=== PATIENT | male | born 1970 | race Caucasian/White ===

== ENCOUNTER 2019-12-22 10:47 | Outpatient (CLI) | payer OTHER, SELFPAY ==
[2019-12-22 11:47] LABS: Alanine Aminotransferase 27 U/L (16-63); Albumin Level 3.7 g/dL (3.4-5.0); Alkaline Phosphatase 75 U/L (46-116); Anion Gap 3 mmol/L (8-16); Aspartate Amino Transferase 28 U/L (15-37); Bilirubin,Total 0.4 mg/dL (0.00-1.00); Blood Urea Nitrogen 12 mg/dL (7-18); Calcium 9.1 mg/dL (8.5-10.1); Carbon Dioxide 32 mmol/L (21-32); Chloride 102 mmol/L (98-108); Cholesterol 218 mg/dL (0-200); Estimated Glomerular Filt Rate > 60; Glucose 91 mg/dL (70-99); HDL Direct 59 mg/dL (40-60); LDL Cholesterol Calculated 142 mg/dL (<130); Osmolality Calculated 283 mOsm/kg (285-295); Potassium 5.3 mmol/L (3.5-5.1); Sodium 137 mmol/L (136-145); Triglycerides 86 mg/dL (0-150)
== END 2019-12-22 10:48 | disposition home or self-care (01) ==
PROVIDERS: PCP Family Medicine; Visit Provider Family Medicine
DX: E78.2 Mixed hyperlipidemia (principal); I10 Essential (primary) hypertension
CPT/HCPCS: 36415; 80053; 80061

== ENCOUNTER 2022-05-08 10:35 | Outpatient (CLI) | payer OTHER, SELFPAY ==
[2022-05-08 11:29] LABS: Alanine Aminotransferase 25 U/L (16-63); Albumin Level 3.9 g/dL (3.4-5.0); Alkaline Phosphatase 69 U/L (46-116); Anion Gap 8 mmol/L (8-16); Aspartate Amino Transferase 21 U/L (15-37); Bilirubin,Total 0.3 mg/dL (0.00-1.00); Blood Urea Nitrogen 12 mg/dL (7-18); Calcium 8.4 mg/dL (8.5-10.1); Carbon Dioxide 30 mmol/L (21-32); Chloride 101 mmol/L (98-108); Cholesterol 187 mg/dL (0-200); Estimated Glomerular Filt Rate > 60; Glucose 93 mg/dL (70-99); HDL Direct 47 mg/dL (40-60); LDL Cholesterol Calculated 91 mg/dL (<130); Osmolality Calculated 287 mOsm/kg (285-295); Potassium 4.5 mmol/L (3.5-5.1); Sodium 139 mmol/L (136-145); Total Protein 7.1 g/dL (6.4-8.2); Triglycerides 245 mg/dL (0-150)
== END 2022-05-08 10:36 | disposition home or self-care (01) ==
LOC: CHSLAB 10:38
PROVIDERS: PCP Family Medicine; Visit Provider Family Medicine
DX: E78.2 Mixed hyperlipidemia (principal); I10 Essential (primary) hypertension
CPT/HCPCS: 36415; 80053; 80061

== ENCOUNTER 2022-05-23 07:42 | Outpatient (CLI) | payer OTHER, SELFPAY ==
[2022-05-23 08:11] LABS: Basophils Absolute Auto 0.04 K/mm3 (0.00-0.10); Basophils Percent Auto 0.5 % (0.0-1.0); Eosinophils Absolute Auto 0.27 K/mm3 (0.02-0.50); Eosinophils Percent Auto 3.6 % (1.0-6.0); Hemoglobin 14.8 g/dL (14.0-18.0); Immature Granulocyte Absolute 0.02 K/mm3 (0.00-0.00); Immature Granulocyte Percent A 0.3 % (0.0-0.0); Lymphocytes Percent Auto 22.5 % (18.0-42.0); Mean Corpuscular HGB Conc 34.4 g/dL (32.0-36.0); Mean Corpuscular Volume 95.8 fL (78.0-102.0); Mean Platelet Volume 9.3 fl (8.7-11.0); Monocytes Absolute Auto 0.66 K/mm3 (0.10-0.90); Monocytes Percent Auto 8.7 % (2.0-11.0); Neutrophils Absolute Auto 4.9 K/mm3 (1.7-7.2); Neutrophils Percent Auto 64.4 % (50.0-70.0); Platelet Count Result 174 K/mm3 (150-420); Red Blood Count 4.49 M/mm3 (4.70-6.10); Red Cell Distribution Width 12.2 % (11.6-14.4); White Blood Count 7.6 K/mm3 (4.8-10.8)
[2022-05-23 09:10] LABS: Alanine Aminotransferase 28 U/L (16-63); Albumin Level 3.8 g/dL (3.4-5.0); Alkaline Phosphatase 68 U/L (46-116); Anion Gap 6 mmol/L (8-16); Aspartate Amino Transferase 17 U/L (15-37); Bilirubin,Total 0.5 mg/dL (0.00-1.00); Blood Urea Nitrogen 15 mg/dL (7-18); Calcium 8.6 mg/dL (8.5-10.1); Carbon Dioxide 31 mmol/L (21-32); Chloride 99 mmol/L (98-108); Cholesterol 195 mg/dL (0-200); Estimated Glomerular Filt Rate 59; Glucose 120 mg/dL (70-99); HDL Direct 56 mg/dL (40-60); LDL Cholesterol Calculated 105 mg/dL (<130); Osmolality Calculated 283 mOsm/kg (285-295); Potassium 4.6 mmol/L (3.5-5.1); Prostate Specific Antigen 1.3 ng/mL (< OR = 4.0); Sodium 136 mmol/L (136-145); Total Protein 6.7 g/dL (6.4-8.2); Triglycerides 168 mg/dL (0-150)
[2022-05-23 09:19] LABS: Thyroid Stimulating Hormone Reflex 1.03 u/IU/mL (0.36-3.74)
[2022-05-28 10:36] LABS: Testosterone Total 510 ng/dL (250-1100)
== END 2022-05-23 07:43 | disposition home or self-care (01) ==
LOC: CHSLAB 07:44
PROVIDERS: PCP Family Medicine; Visit Provider Nurse Practitioner
DX: N52.9 Male erectile dysfunction, unspecified (principal); Z12.5 Encounter for screening for malignant neoplasm of prostate; E78.2 Mixed hyperlipidemia
CPT/HCPCS: 36415; 80053; 80061; 84153; 84403; 84443; 85025; G0103

== ENCOUNTER 2022-07-13 12:38 | Outpatient (CLI) | payer OTHER, SELFPAY ==
--- NOTE | ~2022-07-13 | CT_ITS ---
Non-contrast CT scan of the Abdomen and Pelvis Clinical indication: Abdominal pain Technique: 2.5 mm axial scans were obtained through the abdomen and pelvis without intravenous or or al contrast. Dose reduction technique was used on this scan by utilizing automated exposure control a nd iterative reconstruction technique. The dose-length product (DLP) was 373.64 mGy-cm. COMPARISON: 12/26/2014 Findings: Images through the lung bases reveal no abnormalities. There is no evidence of renal or ureteral calculi. The kidneys and the ureters are nondilated. The liver, spleen, pancreas, gallbladder, and adrenals appear normal. There is no aortic aneurysm. T here are atherosclerotic calcifications of the aorta. There is no evidence of bowel obstruction. Normal appendix. Images through the pelvis were performed. There is no evidence of ascites or lymphadenopathy. Possibl e urinary bladder wall thickening versus underdistention. Prostate gland and seminal vesicles are unr emarkable. Impression: Possible cystitis versus underdistention of urinary bladder. No other significant findings. Reviewed, dictated and finalized at location . [facility] Impression: Possible cystitis versus underdistention of urinary bladder. No other significant findings.
== END 2022-07-13 12:39 | disposition home or self-care (01) ==
LOC: CHSIMG 12:40
PROVIDERS: PCP Family Medicine; Visit Provider Family Medicine
DX: K46.9 Unspecified abdominal hernia without obstruction or gangrene (principal)
CPT/HCPCS: 74176

== ENCOUNTER 2022-07-20 09:14 | Outpatient (CLI) | payer OTHER, SELFPAY ==
[2022-07-20 09:28] LABS: Appearance Urine Clear (Clear); Bilirubin Urine Negative (Negative); Blood Urine Negative (Negative); Color Urine Light Yellow (Yellow); Glucose Urine UA Negative (Negative); Ketones Urine Negative (Negative); Leukocyte Esterase Ur Negative (Negative); Nitrate Urine Negative (Negative); Protein Urine Negative (Negative); Urobilinogen Urine 0.2 mg/dL (0.2-1.0)
[2022-07-20 09:31] LABS: Add Urine Microscopic? NO
== END 2022-07-20 09:15 | disposition home or self-care (01) ==
LOC: CHSLAB 09:16
PROVIDERS: PCP Family Medicine; Visit Provider Family Medicine
DX: N30.90 Cystitis, unspecified without hematuria (principal); R82.90 Unspecified abnormal findings in urine
CPT/HCPCS: 81003; 87086

== ENCOUNTER 2022-11-06 07:13 | Outpatient (CLI) | payer OTHER, SELFPAY ==
--- NOTE | ~2022-11-06 | US_ITS ---
Abdominal Sonogram: Real-time sonographic imaging of the abdomen was performed. Clinical History: Abdominal pain Findings: The liver appears normal with no evidence of mass lesion or bile duct dilatation. Main por nilda vein demonstrates normal direction of flow. The spleen is normal in size without evidence of foca l lesion. The gallbladder is well distended, and appears normal with no evidence of gallstone or wal l thickening. The common bile duct measures 5 mm. The visualized pancreas and IVC are unremarkable. There is atherosclerotic change of the abdominal aorta. The right kidney measures 10.7 cm in length a nd the left kidney measures 9.8 cm. There is no hydronephrosis or renal calculus. Impression: No significant abnormality seen. Reviewed, dictated and finalized at location . Impression: No significant abnormality seen.
== END 2022-11-06 07:14 | disposition home or self-care (01) ==
LOC: CHSIMG 07:15
PROVIDERS: PCP Family Medicine; Visit Provider Family Medicine
DX: R10.9 Unspecified abdominal pain (principal)
CPT/HCPCS: 76700

== ENCOUNTER 2022-11-22 08:39 | Outpatient (CLI) | payer OTHER, SELFPAY ==
[2022-11-22 09:43] LABS: Alanine Aminotransferase 21 U/L (16-63); Aspartate Amino Transferase 16 U/L (15-37); Cholesterol 241 mg/dL (0-200); HDL Direct 55 mg/dL (40-60); LDL Cholesterol Calculated 168 mg/dL (<130); Triglycerides 89 mg/dL (0-150)
== END 2022-11-22 08:40 | disposition home or self-care (01) ==
LOC: CHSLAB 08:45
PROVIDERS: PCP Family Medicine
DX: E78.5 Hyperlipidemia, unspecified (principal)
CPT/HCPCS: 36415; 80061; 84450; 84460

== ENCOUNTER 2022-12-18 14:27 | Outpatient (CLI) | payer OTHER, SELFPAY ==
--- NOTE | ~2022-12-18 | XR_ITS ---
EXAM: XR hip BI 2V w AP pelvis DATE: 12/18/2022 14:57 HISTORY: M25.551 - Pain in lateral right hip x2 days, travels anterio . COMPARISON: None available. FINDINGS: Normal mineralization. No fracture or dislocation. No lytic or blastic lesion. Mild degene rative change in the right SI joint. Moderate degenerative change in the pubic symphysis and bilatera l hips, worse on the right. Surgical clips over the medial thigh. Scattered vascular calcifications. No erosion or periosteal change. IMPRESSION: Moderate bilateral hip osteoarthritis, worse on the right. Reviewed, dictated and finalized at location K.
[2022-12-18 15:19] LABS: Troponin I 14.8 ng/L (0.00-60.4)
== END 2022-12-18 14:28 | disposition home or self-care (01) ==
LOC: CHSLAB 14:29
PROVIDERS: PCP Nurse Practitioner Family; Visit Provider Nurse Practitioner Family
DX: M16.0 Bilateral primary osteoarthritis of hip (principal); R07.9 Chest pain, unspecified; M25.551 Pain in right hip
CPT/HCPCS: 36415; 73521; 84484

== ENCOUNTER 2023-03-08 08:06 | Outpatient (CLI) | payer OTHER, SELFPAY ==
--- NOTE | 2023-03-08 08:08 | ECG_ITS ---
Measurements Intervals [place] Rate: 53 P: 57 VT: 161 QRS: 54 QRSD: 99 T: 162 QT: 429 QTc: 406 Interpretive Statements SINUS BRADYCARDIA LEFT VENTRICULAR HYPERTROPHY WITH SECONDARY REPOLARIZATION ABNORMALITIES ABNORMAL ECG NO PREVIOUS ECG AVAILABLE FOR COMPARISON Electronically Signed On 03-08-2023 15:16:53 CDT by Vinnie Camacho M.D.
== END 2023-03-08 08:07 | disposition home or self-care (01) ==
PROVIDERS: PCP Family Medicine; Visit Provider Anesthesiology
DX: Z01.818 Encounter for other preprocedural examination (principal); I10 Essential (primary) hypertension; R00.1 Bradycardia, unspecified; R94.31 Abnormal electrocardiogram [ECG] [EKG]
CPT/HCPCS: 93005

== ENCOUNTER 2023-03-13 01:23 | Day surgery (SDC) | payer OTHER, SELFPAY ==
[2023-03-06 13:02] VITALS: BMI 25.9
--- NOTE | 2023-03-06 13:12 | PC.NURSE ---
Report to the Outpatient Waiting Room, entrance under the green pavilion located off [facility], at time 0600 on date 03/13/23. Planned Procedure Time: 0730. Time changes happen often and if your time is changed the preop area will call you the afternoon before. - You and your visitor will be asked to self-screen and do not enter if you have any COVID symptoms. - A mask is optional within the hospital at this time. Patients may have clear liquids (water, carbonated beverages, clear teas, apple juice) until 3 hours prior to surgery with a maximum of 20 ounces. - No food from midnight until time of surgery Take the following medications with a SIP of water the morning of surgery: CARVEDILOL, TYLENOL IF NEEDED DO NOT STOP ANY OF YOUR OTHER PRESCRIPTION MEDICATIONS PRIOR TO SURGERY ?EXCEPT THE FOLLOWING Medications to discontinue per physician: N/A Date to take last dose: N/A Please no make-up, nail togolese, hairspray, perfume, deodorant, or body powder the day of surgery. No jewelry (including any body piercings) or valuables the day of surgery, leave them at home. Please take a shower or bath the night before, or the morning of, surgery with an antibacterial soap. Wear comfortable, loose fitting clothing. - Jewelry must be removed prior to entering the operating room. Rings and piercings that are not removed may be cut off. - The hospital will not accept responsibility for valuables. - Please leave all valuables, including medications, at home the day of surgery. If you are going home after surgery, a licensed hazmat tanker driver must drive you home. - NO public transportation without another adult if you receive anesthesia. - We recommend that an adult stay with you for 24 hours following discharge. - We also recommend that you do not drive, make important decision, drink alcoholic beverages, or take any drugs that were not prescribed by your health care provider for at least 24 hours after your discharge time. Follow any additional instructions given to you from your surgeon. If you or anyone in your household have experienced Covid symptoms in the past week, please notify your surgeon or the nurse liaison at the phone number below for possible testing. Telephone instructions given to PT - JEAN PAUL REYEZ and asked if any additional questions and then verbalized understanding. Patient advised to call surgeon office or pre surgery nurse liaison [phone] if any additional questions.
[2023-03-13] VITALS (9 sets, daily range): BP systolic 118–151; BP diastolic 63–105; PULSE 46–88; RESP 14–20; TEMP 36.4–36.8; O2SAT 100
[2023-03-13] MEDS: LACTATED RINGERS 1,000 ML 30 ML IV CONT ×2 (07:00→09:53)
[2023-03-13] MEDS: ACETAMINOPHEN 500 MG TABLET 1000 MG PO (07:00)
[2023-03-13] MEDS: KETOROLAC 15 MG/ML VIAL (*BKC) IV PUSH (07:00)
--- NOTE | 2023-03-13 07:13 | PM.IMHP ---
H&P: HPI History of Present Illness Date/Time: 03/13/23 07:13 Chief Complaint: right inguinal hernia Narrative: 52 yo man presents for right inguinal hernia repair. He reports no changes since last seen in office. Review of Systems Review of Systems: All systems reviewed & are unremarkable except as noted in HPI and below Constitutional: Constitutional: Denies chills, Denies fever(s), Denies headache(s) and Denies weight loss Eyes: Eyes: Denies change in vision ENT: Denies dizziness, Denies headache(s), Denies neck mass and Denies throat swelling Cardiovascular: Cardiovascular: Denies chest pain, Denies lightheadedness and Denies dyspnea Respiratory: Respiratory: Denies cough, Denies dyspnea and Denies wheezing Gastrointestinal: Gastrointestinal: Denies abdominal pain, Denies change in bowel habits, Denies nausea and Denies vomiting Genitourinary: Genitourinary: Denies hematuria and Denies dysuria Musculoskeletal: Musculoskeletal: Reports as per HPI Integumentary/Breasts: Skin/Breast: Reports as per HPI Neurologic: Denies dizziness and Denies headache(s) Allergic/Immunologic: Allergic/Immunologic: Denies throat swelling and Denies wheezing PMFSH Past Medical History Medical History Bipolar disorder Cardiac defibrillator in place CHF (congestive heart failure) Hyperlipidemia Hypertension Surgical History Surgical History Hx of CABG Hx of cardiac cath Social History Social History Social History: on disability Smoking packs per day: 1 Smoking cigarettes per day: 20.0 Years smoked: 40 Smoking pack-years: 40.00 Smoking status: Current every day smoker Tobacco type: cigarettes Alcohol intake: former Drinks per week: 12 Substance use: current Substance use type: marijuana Living arrangements: with family Spiritual care concerns: No Meds Home Medications and Allergies Home Medications Medication Instructions Recorded Confirmed Type albuterol sulfate 90 mcg/actuation 2 puff inhalation Q4H PRN 06/12/22 03/06/23 History aerosol inhaler Bronchospasm aspirin 81 mg tablet,delayed 81 mg PO DAILY 06/12/22 03/06/23 History release (Adult Low Dose Aspirin) carvedilol 12.5 mg tablet (Coreg) 12.5 mg PO Q12H 06/12/22 03/06/23 History famotidine 20 mg tablet 20 mg PO BID 06/12/22 03/06/23 History lisinopril 10 mg tablet 10 mg PO DAILY #90 tabs 01/23/23 03/06/23 Rx acetaminophen 650 mg 650 mg PO Q12H PRN Pain 03/06/23 03/06/23 History tablet,extended release ezetimibe 10 mg tablet 10 mg PO HS 03/06/23 03/06/23 History Allergies Allergy/AdvReac Type Severity Reaction Status Date / Time atorvastatin AdvReac Cramping Verified 03/06/23 12:59 of the Muscles Exam Const: General: no acute distress and alert Orientation/consciousness: patient oriented x3 HENMT: Head: normocephalic and atraumatic Ears: hearing grossly normal bilaterally Face/Nose/Sinus: Normal nares present Mouth: Yes Normal oral and palatal mucosa present Eyes: Periorbital: periorbital findings normal Sclera: sclerae normal EOM: EOMs intact bilaterally Neck: Neck: normal visual inspection, no lymphadenopathy and trachea midline Chest: Chest palpation & inspection: normal inspection of the chest Resp: Effort & Inspection: normal respiratory effort Auscultation: clear to auscultation bilaterally Cardio: Jugular venous distension: no JVD Rate: regular rate Rhythm: regular rhythm Heart sounds: S1 normal heart sound present and S2 normal heart sound present Peripheral pulses: Peripheral pulses 2+ throughout GI: Inspection: normal to inspection GI Palp: Yes Soft to palpation, No Tenderness to palpation present (GI), No Guarding due to palpation present (GI) and No Rebound tenderness present Percussion: Yes normal to percussi
--- NOTE | 2023-03-13 07:15 | WPDHPUPDATE1 ---
History and Physical Update Update Date/Time: 03/13/23 07:15 History and Physical has been reviewed, including an updated exam of the patient. There are NO changes in the patient's condition. Risks, benefits, and alternatives have been discussed and questions answered. Patient agrees to proceed with procedure.
--- NOTE | 2023-03-13 07:29 | WPDANESEPPF ---
Anes - Initial Pre Proc Eval Procedure: Operation Date: 03/13/23 07:30 Proposed Procedures p Laparoscopic Right Inguinal Hernia Repair with Mesh, DaVinci Assisted - Jorge Ingram DO Date/Time: 03/13/23 07:29 Surgeon: Jorge Ingram DO Pre Op Diagnosis: Rt Ing Hernia Patient Data Age: 52 Gender: M Height: 1.78 m Weight: 82 kg Allergies Allergy/AdvReac Type Severity Reaction Status Date / Time atorvastatin AdvReac Cramping Verified 03/06/23 12:59 of the Muscles Home Medications Medication Instructions Recorded Confirmed Type albuterol sulfate 90 mcg/actuation 2 puff inhalation Q4H PRN 06/12/22 03/06/23 History aerosol inhaler Bronchospasm aspirin 81 mg tablet,delayed 81 mg PO DAILY 06/12/22 03/06/23 History release (Adult Low Dose Aspirin) carvedilol 12.5 mg tablet (Coreg) 12.5 mg PO Q12H 06/12/22 03/06/23 History famotidine 20 mg tablet 20 mg PO BID 06/12/22 03/06/23 History lisinopril 10 mg tablet 10 mg PO DAILY #90 tabs 01/23/23 03/06/23 Rx acetaminophen 650 mg 650 mg PO Q12H PRN Pain 03/06/23 03/06/23 History tablet,extended release ezetimibe 10 mg tablet 10 mg PO HS 03/06/23 03/06/23 History Laboratory Tests 03/13/23 06:52 Blood Type Pending Antibody Screen Pending Patient hx anesthesia problems: none Family hx anesthesia problems: none Results Review: All pre-operative results and documents have been reviewed as part of the pre-operative evaluation. [facility] Past Medical History Medical History Bipolar disorder Cardiac defibrillator in place CHF (congestive heart failure) Hyperlipidemia Hypertension Surgical History Surgical History Hx of CABG Hx of cardiac cath Social History Social History Social History: on disability Smoking packs per day: 1 Smoking cigarettes per day: 20.0 Years smoked: 40 Smoking pack-years: 40.00 Smoking status: Current every day smoker Tobacco type: cigarettes Alcohol intake: former Drinks per week: 12 Substance use: current Substance use type: marijuana Living arrangements: with family Spiritual care concerns: No Anes - Eval Final PreProcedure Day of Procedure 03/13/23 07:29 Patient weight: normal Heart: regular rate and rhythm Lungs: decreased breath sounds Airway: Mallampati scale class II Neurological: alert and oriented Last oral intake: >/= 8 hours ASA classification: IV Emergent: no Anesthetic plan: proceed Anesthesia type and monitoring: general ETT and standard monitoring Results Review: All pre-operative results and documents have been reviewed as part of the pre-operative evaluation. Informed Consent: The patient's anesthetic plan and its attendant risks and benefits were discussed with the patient/family/POA. Questions were solicited and answers provided to the satisfaction of the patient/family/POA.
[2023-03-13] MEDS: ceFAZolin 2 GM/D5W 50 ML 2 GM/50 ML BAG IVPB (07:36)
[2023-03-13] MEDS: BUPIVACAINE/EPINEPHRINE 0.5% 50 ML VIAL 30 ML INFILTRATE (08:23)
--- NOTE | 2023-03-13 08:36 | W.PM.PROC2 ---
Procedure Note - Detailed Date of Procedure 03/13/23 Pre-op Diagnosis Rt Ing Hernia Post-op Diagnosis Same (Direct [facility]) Procedure Performed Laparoscopic right inguinal hernia repair with mesh, da Enrique assisted Surgeon Jorge Ingram, Anesthesia General and Local (0.5% bupivacaine with epinephrine) Indications This is a 52-year-old man who presented with a right groin bulge and pain for the past year. It started out small with minimal symptoms but has become more symptomatic since then. He was found to have a reducible right inguinal hernia on physical exam. Imaging was essentially normal. Discussions were made with the patient about treatment options and decision was made to proceed with robotic assisted laparoscopic right inguinal hernia repair with mesh. Findings Laparoscopic right inguinal hernia repair was performed. The patient was found have a small direct right inguinal hernia. There was no evidence of a left inguinal hernia. A robotic transabdominal preperitoneal approach was utilized for repair. Once a wide enough preperitoneal pocket was created, I then placed a large right 3DMax mid mesh overlying the entire right myopectineal orifice. Description of Procedure Procedure as well as risks, benefits, and alternatives were discussed with the patient. Written consent was obtained and placed in chart prior to procedure. Patient was brought back to surgical suite. He was placed supine on operating table. Time-out was done to confirm patient and procedure. He was then intubated by Anesthesia Department. His abdomen was prepped and draped in sterile fashion using chlorhexidine prep. 0.5% bupivacaine with epinephrine was infiltrated at each location for incision. An 8 mm incision was made in the left lateral abdomen, and a 5 mm Optiview trocar was advanced through the abdominal layers under direct visualization. Once inside the abdominal cavity, carbon dioxide insufflation was used to create a pneumoperitoneum. A camera was inserted and the abdominal cavity was inspected. The patient was placed in slight Trendelenburg position. An 8 millimeter incision was made on the right lateral abdomen and an 8 millimeter trocar was inserted under direct visualization. Another 8 millimeter incision was made just superior to the umbilicus and an 8 millimeter trocar was inserted under direct visualization. The 5 mm port was then removed and this was replaced with another 8 mm robotic port. The robotic arms were brought up to the patient's bedside and secured to the ports. The camera and instruments were inserted. I then moved over to the robotic console and took control of the camera and instruments. After careful inspection of the abdominal cavity, I began scoring the peritoneum along the right lower quadrant using scissors with electrocautery. The preperitoneal plane was entered and this was carefully dissected caudally along the inferior epigastric vessels. Careful dissection with scissors with electrocautery and blunt dissection was used to continue this dissection. I dissected far enough laterally to allow for mesh placement, and also dissected medially to identify the pubic arch and Reginaldo's ligament. The hernia sac was identified and carefully dissected posteriorly. The cord contents were also identified and the peritoneum was carefully dissected far enough posteriorly to allow for mesh placement. Once an adequate pocket was created, I then placed the mesh within the preperitoneal pocket and carefully unfolded it. The mesh was centered on the hernia defect with adequate overlap circumferentially. The inferior edge of the mesh was inspected to ensure that it was far enough away from the peritoneal edge. The mesh appeared in proper position overlying the entire myopectineal orifice. The mesh was secured using 3-0 Vicryl simple interrupted sutures in Reginaldo's ligament, the superior medial edge, and superior lateral edge of the mesh. The periton
[2023-03-13] MEDS: fentaNYL CITRATE INJ (*CRX) 100 MCG/2 ML VIAL 25 MCG IV PUSH ×4 (08:53→09:13)
--- NOTE | 2023-03-13 09:34 | SUR.PHASEI ---
0900 - [employer] rep Taylor called and stated that the interrogation reading that was sent looked good and that he would send a confirmation to the fax number given
[2023-03-13] MEDS: oxyCODONE HCL (*CRX) 5 MG TAB IR PO (09:35)
== END 2023-03-13 10:47 | disposition home or self-care (01) ==
PROVIDERS: PCP Family Medicine; Visit Provider Surgery
PROC: 8E0Y4CZ Robotic Assisted Procedure of Lower Extremity, Percutaneous Endoscopic Approach (ICD-10-PCS; CPT 49650; principal; 2023-03-13 07:30)
DX: K40.90 Unilateral inguinal hernia, without obstruction or gangrene, not specified as recurrent (principal); I11.0 Hypertensive heart disease with heart failure; I50.9 Heart failure, unspecified; E78.5 Hyperlipidemia, unspecified; F31.9 Bipolar disorder, unspecified; Z95.1 Presence of aortocoronary bypass graft; Z95.810 Presence of automatic (implantable) cardiac defibrillator; F17.210 Nicotine dependence, cigarettes, uncomplicated; F12.90 Cannabis use, unspecified, uncomplicated; Z79.51 Long term (current) use of inhaled steroids; Z79.82 Long term (current) use of aspirin
CPT/HCPCS: 49650; S2900; 36415; 86850; 86900; 86901; A9270; C1781; J0690; J1100; J1885; J2250; J2270; J2704; J2710; J3010; J7030; J7120

== ENCOUNTER 2023-03-23 07:24 | Outpatient (CLI) | payer OTHER, SELFPAY ==
[2023-03-23 08:28] LABS: Alanine Aminotransferase 27 U/L (16-63); Aspartate Amino Transferase 28 U/L (15-37); Cholesterol 277 mg/dL (0-200); HDL Direct 45 mg/dL (40-60); LDL Cholesterol Calculated 195 mg/dL (<130); Triglycerides 186 mg/dL (0-150)
== END 2023-03-23 07:25 | disposition home or self-care (01) ==
LOC: CHSLAB 07:28
PROVIDERS: PCP Family Medicine
DX: E78.5 Hyperlipidemia, unspecified (principal); Z79.899 Other long term (current) drug therapy
CPT/HCPCS: 36415; 80061; 84450; 84460

== ENCOUNTER 2023-05-24 09:36 | Outpatient (CLI) | payer OTHER, SELFPAY ==
--- NOTE | ~2023-05-24 | CT_ITS ---
EXAMINATION: CT sinus wo con DATE: 05/24/2023 09:54 INDICATION: Deviated nasal septum. Congestion, worse on the right. TECHNIQUE: Computed tomography (CT) of the paranasal sinuses was performed without contrast. Iterativ e reconstruction technique was employed. Exam dose: 208.19 mGy-cm total exam DLP. COMPARISON: None FINDINGS: There is rightward deviation of the lower nasal septum. There is symmetric moderate soft tissue swelling of the nasal turbinates. The ostiomeatal units are patent. The paranasal sinuses are normally developed and aerated. There is a likely old blowout fracture medial wall of the left orbit. Middle and inner ear apparatus appear normal. There is limited development of the mastoid air cells but no mastoid effusions. IMPRESSION: Rightward deviation nasal septum Moderate soft tissue swelling of the nasal turbinates Patent paranasal sinuses and mastoid air cells Reviewed, dictated and finalized at Location A. Reviewed, dictated and finalized at location B. [employer]
== END 2023-05-24 09:37 | disposition home or self-care (01) ==
LOC: CHSIMG 09:37
PROVIDERS: PCP Family Medicine; Visit Provider Family Medicine
DX: J34.2 Deviated nasal septum (principal); J34.89 Other specified disorders of nose and nasal sinuses
CPT/HCPCS: 70486

== ENCOUNTER 2023-06-04 07:00 | Outpatient (CLI) | payer OTHER, SELFPAY ==
[2023-06-04 08:14] LABS: Alanine Aminotransferase 54 U/L (16-63); Aspartate Amino Transferase 34 U/L (15-37); Cholesterol 182 mg/dL (0-200); HDL Direct 46 mg/dL (40-60); LDL Cholesterol Calculated 104 mg/dL (<130); Triglycerides 159 mg/dL (0-150)
== END 2023-06-04 07:01 | disposition home or self-care (01) ==
PROVIDERS: PCP Family Medicine
DX: E78.5 Hyperlipidemia, unspecified (principal); Z79.899 Other long term (current) drug therapy
CPT/HCPCS: 36415; 80061; 84450; 84460

== ENCOUNTER 2023-07-19 12:16 | Outpatient (NON) | payer OTHER, SELFPAY ==
[2023-07-19 12:28] LABS: Appearance Urine Clear (Clear); Bilirubin Urine Negative (Negative); Blood Urine Negative (Negative); Color Urine Light Yellow (Yellow); Glucose Urine UA Negative (Negative); Ketones Urine Negative (Negative); Leukocyte Esterase Ur Negative (Negative); Nitrate Urine Negative (Negative); Protein Urine Negative (Negative); Specific Grav Ur <= 1.005 (1.010-1.020); Urobilinogen Urine 0.2 mg/dL (0.2-1.0); pH Urine 6.5 (5.0-8.0)
[2023-07-19 12:31] LABS: Add Urine Microscopic? NO
[2023-07-19 19:32] LABS: Trichomonas Vag PCR NOT DETECTED (NOT DETECTE)
[2023-07-19 19:57] LABS: Chlamydia trachomatis NOT DETECTED (NOT DETECTE); Neisseria gonorrhoeae PCR NOT DETECTED (NOT DETECTE)
== END 2023-07-19 12:17 | disposition home or self-care (01) ==
LOC: CHSLAB 12:17
PROVIDERS: Visit Provider Family Medicine
DX: R30.0 Dysuria (principal); Z72.51 High risk heterosexual behavior
CPT/HCPCS: 81003; 87491; 87591; 87661

== ENCOUNTER 2023-08-15 07:08 | Outpatient (CLI) | payer OTHER, SELFPAY ==
[2023-08-15 08:23] LABS: Alanine Aminotransferase 38 U/L (16-63); Aspartate Amino Transferase 23 U/L (15-37); Cholesterol 112 mg/dL (0-200); HDL Direct 62 mg/dL (40-60); LDL Cholesterol Calculated 17 mg/dL (<130); Triglycerides 167 mg/dL (0-150)
== END 2023-08-15 07:09 | disposition home or self-care (01) ==
LOC: CHSLAB 07:11
PROVIDERS: PCP Family Medicine
DX: E78.5 Hyperlipidemia, unspecified (principal); Z79.899 Other long term (current) drug therapy
CPT/HCPCS: 36415; 80061; 84450; 84460

== ENCOUNTER 2023-12-25 08:10 | Outpatient (CLI) | payer OTHER, SELFPAY ==
[2023-12-25 09:19] LABS: Alanine Aminotransferase 25 U/L (16-63); Aspartate Amino Transferase 21 U/L (15-37); Cholesterol 89 mg/dL (0-200); HDL Direct 50 mg/dL (40-60); LDL Cholesterol Calculated 19 mg/dL (<130); Triglycerides 101 mg/dL (0-150)
== END 2023-12-25 08:11 | disposition home or self-care (01) ==
LOC: CHSLAB 08:15
PROVIDERS: PCP Family Medicine
DX: E78.2 Mixed hyperlipidemia (principal)
CPT/HCPCS: 36415; 80061; 84450; 84460